=== PATIENT | female | born 1995 | race African-American/Black ===

== ENCOUNTER 2016-08-08 22:37 | Emergency (ER) | payer SELFPAY ==
--- NOTE | 2016-08-08 22:38 | PDOC ---
History of Present Illness - General Chief Complaint: Pain Stated Complaint: LOWER ABD PAIN Time Seen by Provider: 08/08/16 22:38 History Source: Patient Exam Limitations: No Limitations - History of Present Illness Initial Comments: 21 yo F no significant PMH presents with abrupt onset lower abd pain x1 day. She states the pain is mild to moderate, has been progressively worsening. Associated with nausea but no vomiting or diarrhea. Denies fever, dysuria, urinary urgency, frequency. No prior similar symptoms. She has had UTIs in the past, but this is different than those symptoms. LMP July 07. Past History - Past Medical History Allergies/Adverse Reactions: Allergies Allergy/AdvReac Type Severity Reaction Status Date / Time chlorpromazine HCl Allergy Verified 05/06/16 19:32 [From Thorazine] diphenhydramine HCl Allergy Verified 05/06/16 19:32 [From Benadryl] Home Medications: Ambulatory Orders Albuterol Sulfate Inhaler - [Ventolin Hfa Inhaler -] 1 - 2 inh PO Q4H 05/06/16 Ibuprofen [Motrin -] 600 mg PO TID PRN #21 tablet 08/09/16 Oxycodone HCl/Acetaminophen [Percocet 5-325 mg Tablet] 1 tab PO Q6H PRN #12 tablet MDD 4 tabs 08/09/16 Anemia: Yes Asthma: Yes - Surgical History Other Surgical History: IUD - Psycho/Social/Smoking Cessation Hx Suicidal Ideation: No Smoking History: Current every day smoker Have you smoked in the past 12 months: Yes Number of Cigarettes Smoked Daily: 5 'Breaking Loose' booklet given: 03/06/16 Hx Alcohol Use: Yes (WEEKLY) Drug/Substance Use Hx: No Substance Use Type: None Review of Systems - Review of Systems Able to Perform ROS?: Yes Comments:: GENERAL/CONSTITUTIONAL: No fever or chills. No weakness. HEAD, EYES, EARS, NOSE AND THROAT: No change in vision. No ear pain or discharge. No sore throat. CARDIOVASCULAR: No chest pain or shortness of breath. RESPIRATORY: No cough, wheezing, or hemoptysis. GASTROINTESTINAL: +Nausea. No vomiting, diarrhea or constipation. +Lower abd pain. GENITOURINARY: No dysuria, frequency, or change in urination. MUSCULOSKELETAL: No joint or muscle swelling or pain. No neck or back pain. SKIN: No rash NEUROLOGIC: No headache, vertigo, loss of consciousness, or change in strength/ sensation. ENDOCRINE: No increased thirst. No abnormal weight change. HEMATOLOGIC/LYMPHATIC: No anemia, easy bleeding, or history of blood clots. ALLERGIC/IMMUNOLOGIC: No hives or skin allergy. *Physical Exam - Physical Exam Comments: GENERAL: Awake, alert, and fully oriented, in no acute distress. Appears uncomfortable. HEAD: No signs of trauma EYES: PERRLA, EOMI, sclera anicteric, conjunctiva clear ENT: Auricles normal inspection, hearing grossly normal, nares patent, oropharynx clear without exudates. Moist mucosa NECK: Normal ROM, supple, no lymphadenopathy, JVD, or masses LUNGS: Breath sounds equal, clear to auscultation bilaterally. No wheezes, and no crackles HEART: Regular rate and rhythm, normal S1 and S2, no murmurs, rubs or gallops ABDOMEN: Soft, +suprapubic and BLQ tenderness, normoactive bowel sounds. No guarding, no rebound. No masses. No CVAT. +Tenderness to R lower back. EXTREMITIES: Normal range of motion, no edema. No clubbing or cyanosis. No cords, erythema, or tenderness NEUROLOGICAL: Cranial nerves II through XII grossly intact. Normal speech, normal gait SKIN: Warm, Dry, normal turgor, no rashes or lesions noted. : No external lesions. Trace physiologic discharge. No CMT, no adnexal tenderness. ED Treatment Course - LABORATORY CBC & Chemistry Diagram: 08/08/16 23:53 08/08/16 23:55 Medical Decision Making - Medical Decision Making 08/08/16 23:46 Pt initially did not want any strong pain medicines. She had taken ibuprofen 600 mg prior to arrival. She agreed to tylenol in ED. On reassessment, she is significantly more uncomfortable, unable to find a comfortable position on the stretcher. Currently awaiting CT to r/o kidney stone. At present, pain is now a 10/10, and she agrees to IV placement and pain medication. Will give her morphine and keep her NPO. 08/09/16 01:[address] results with patient. Shows free fluid in the pelvis, no other acute findings. Based on the clinical presentation, I suspect this may have been a ruptured ovarian cyst. Her pain has localized to R lower abdomen, and she states that she is more comfortable when she lies on her left side. There are no peritoneal signs. Pelvic exam is unremarkable. Will treat with pain medications. Pt counseled to return to ED if symptoms persist, worsen, or if she develops new symptoms. She will f/u with her nurse obgyn this week. *DC/Admit/Observation/Transfer Diagnosis at time of Disposition: Abdominal pain Qualifiers: Abdominal location: lower abdomen, unspecified Qualified Code(s): R10.30 - Lower abdominal pain, unspecified - Discharge Dispostion Condition at time of disposition: Stable Admit: No - Prescriptions Prescriptions: Ibuprofen [Motrin -] 600 mg PO TID PRN #21 tablet PRN Reason: Pain Oxycodone HCl/Acetaminophen [Percocet 5-325 mg Tablet] 1 tab PO Q6H PRN #12 tablet MDD 4 tabs PRN Reason: Severe Pain - Patient Instructions Printed Discharge Instructions: DI for Abdominal Pain-Adult
[2016-08-08 22:45] VITALS: BP 131/66; PULSE 80; TEMP 98.8; BMI 39.9
[2016-08-08] MEDS ORDERED: ACETAMINOPHEN 325 MG TABLET (FP) PO ONE (23:05)
[2016-08-08 23:07] LABS: URINE APPEARANCE Clear; URINE BILIRUBIN Negative (NEGATIVE); URINE BLOOD Negative (NEGATIVE); URINE COLOR YELLOW; URINE GLUCOSE (UA) Negative (NEGATIVE); URINE KETONE 1+ (NEGATIVE); URINE LEUK ESTERASE Trace (NEGATIVE); URINE NITRITE Negative (NEGATIVE); URINE PROTEIN Negative (NEGATIVE); URINE UROBILINOGEN 0.2 E.U/dl (0.2-1.0)
[2016-08-08] MEDS ORDERED: ACETAMINOPHEN 325 MG TABLET (FP) ONE (23:11)
[2016-08-08] MEDS ORDERED: SODIUM CHLORIDE 1,000 ML IV STA (23:44)
[2016-08-08] MEDS ORDERED: morphine CARPU-JECT 4 MG/1 ML DISP.SYRIN IVPUSH ONE (23:44)
[2016-08-08] MEDS ORDERED: morphine CARPU-JECT 10 MG/1 ML DISP.SYRIN ONE (23:58)
[2016-08-09 00:32] LABS: BASOPHIL 0.7 % (0-2.0); EOSINOPHIL 3.6 % (0-4.5); MCH 22.3 pg (25.7-33.7); MCHC 31.5 g/dl (32.0-36.0); MEAN CELL VOLUME 70.6 fl (80-96); MEAN PLT VOLUME 9.8 fl (7.5-11.1); NEUTROPHILS 57.5 % (42.8-82.8); PLATELET COUNT 161 K/MM3 (134-434); RDW 15.7 % (11.6-15.6); WHITE BLOOD COUNT 7.5 K/mm3 (4.0-10.0)
[2016-08-09 00:55] LABS: ALBUMIN 3.8 g/dl (3.4-5.0); ALK PHOS 77 U/L (45-117); ANION GAP 9 (8-16); BILIRUBIN,TOTAL 0.3 mg/dL (0.2-1.0); CO2 25 mmol/L (21-32); CREATININE 0.8 mg/dL (0.55-1.02); GLUCOSE,RANDOM 91 mg/dL (74-106); SGOT/AST 12 U/L (15-37); SGPT/ALT 19 U/L (12-78); TOT PROT 7.2 g/dl (6.4-8.2)
== END 2016-08-09 01:22 | disposition home or self-care (01) ==
LOC: FER 22:37
PROC: 3E0337Z Introduction of Electrolytic and Water Balance Substance into Peripheral Vein, Percutaneous Approach (ICD-10-PCS; principal; 2016-08-08)
PROC: 3E033NZ Introduction of Analgesics, Hypnotics, Sedatives into Peripheral Vein, Percutaneous Approach (ICD-10-PCS; 2016-08-08)
DX: R10.30 Lower abdominal pain, unspecified (principal)
CPT/HCPCS: 36415; 74176; 80053; 81003; 84703; 85025; 87491; 87591; 99283-25

== ENCOUNTER 2016-08-10 22:37 | Emergency (ER) | payer SELFPAY ==
[2016-08-10 22:51] VITALS: BP 138/87; PULSE 75; TEMP 98.9; BMI 39.9
--- NOTE | 2016-08-10 22:51 | PDOC ---
History of Present Illness - General Chief Complaint: Pain, Acute Stated Complaint: ABDOMINAL PAIN Time Seen by Provider: 08/10/16 22:44 History Source: Patient Exam Limitations: No Limitations - History of Present Illness Initial Comments: 08/11/16 00:39 This is a morbidly obese black female who comes in complaining of pelvic pain 2 days. Patient was seen at [facility] by Dr. Browning and had a complete workup including labs and CAT scan. Patient's lab work was all normal including there was no left shift or white count. Her chemistries were also normal. Patient had a pelvic exam by Dr. Browning and cultures for GC and Chlamydia were sent however there was no cervical motion tenderness and adnexal tenderness or cervical discharge. Culture results are still pending. CAT scan did show a normal appendix and no acute intra-abdominal pathology. The IUD was in the lower uterine segment with a small amount of fluid in the old affect otherwise normal CAT scan Patient now returns complaining of worsening pain. Patient did see her primary care doctor and was referred to an OB but cannot get an appointment for a month and a half from now. Patient did not have a pelvic ultrasound at the time of her prior evaluation. She denies any new symptoms there is no fevers or chills, there is no nausea vomiting or diarrhea. There is no new quality to her pain is is just persistent and worse. Patient was given ibuprofen and Percocet for the pain and says that it is not helping. PAST MEDICAL HISTORY: no significant history PAST SURGICAL HISTORY: no significant history FAMILY HISTORY: no pertinant history SOCIAL HISTORY: Pt lives with family and is employed. MEDICATIONS: reviewed ALLERGIES: As per nursing notes Review of Systems General: No fevers or chills, no weakness, no weight loss HEENT: No change in vision. No sore throat,. No ear pain CardioVascular: No chest pain or shortness of breath Respiratory:No cough, or wheezing. Gastrointestinal: no nausea, vomitting, diarrhea or constipation, No rectal bleeding, + abdominal pain Genitourinary: No dysuria, hematuria, or frequency Musculoskeletal: No joint or muscle pain or swelling Neurologic: No headache, vertigo, dizziness or loss of consciousness Psychiatric: nor depression Skin: No rashes or easy bruising Endocrine: no increased thirst or abnormal weight change Allergic: no skin or latex allergy All other systems reviewed and normal Exam: General: Well-nourished well-developed individual, no acute distress HEENT: Throat: Normal, tonsils normal, no erythema or exudate Neck: Supple, no meningeal signs, no lymphadenopathy Eyes::Pupils equal reactive and round, extraocular motion intact Chest: Nontender to palpation Cardiac: S1-S2 normal, regular rate and rhythm, no murmurs rubs or gallops Respiratory: Lungs clear to auscultation bilateral Abdomen: Soft, nondistended, normal bowel sounds, there is moderate tenderness on palpation across lower abdominal/pelvic area. There is no guarding or rebound. Extremities: Warm, dry, no cyanosis, clubbing, or edema Skin: No rashes Neuro: Alert and oriented x3, nonfocal exam, grossly intact, normal gait Psych: Normal mood and affect Assessment and plan: This is a 21-year-old female who comes in complaining of pelvic pain. Patient was seems to days ago and had a complete workup including CAT scan and lab work pelvic exam and [employer] cultures all of which were negative. I repeated patient's blood work which was normal And had a pelvic ultrasound done which was also normal. Patient was referred to a [facility] [facility] doctor for further evaluation and was told to take Aleve for the pain. Patient discharged home. Past History - Past Medical History Allergies/Adverse Reactions: Allergies Allergy/AdvReac Type Severity Reaction Status Date / Time chlorpromazine HCl Allergy Verified 05/06/16 19:32 [From Thorazine] diphenhydramine HCl Allergy Verified 05/06/16 19:32 [From Benadryl] Home Medications: Ambulatory Orders Albuterol Sulfate Inhaler - [Ventolin Hfa Inhaler -] 1 - 2 inh PO Q4H PRN Ibuprofen [Motrin -] 600 mg PO TID PRN #21 tablet 08/09/16 Oxycodone HCl/Acetaminophen [Percocet 5-325 mg Tablet] 1 tab PO Q6H PRN #12 tablet MDD 4 tabs 08/09/16 Anemia: Yes Asthma: Yes - Psycho/Social/Smoking Cessation Hx Anxiety: No Suicidal Ideation: No Smoking History: Current every day smoker Have you smoked in the past 12 months: Yes Number of Cigarettes Smoked Daily: 5 Information on smoking cessation initiated: Yes 'Breaking Loose' booklet given: 03/06/16 Hx Alcohol Use: Yes (WEEKLY) Drug/Substance Use Hx: No Substance Use Type: None *Physical Exam - Vital Signs Last Vital Signs Temp Pulse Resp BP Pulse Ox 98.9 F 75 16 138/87 08/10/16 22:40 08/10/16 22:40 08/10/16 22:40 08/10/16 22:40 ED Treatment Course - LABORATORY CBC & Chemistry Diagram: 08/10/16 23:49 08/10/16 23:49 *DC/Admit/Observation/Transfer Diagnosis at time of Disposition: Pelvic pain - Discharge Dispostion Disposition: HOME Condition at time of disposition: Stable Admit: No - Patient Instructions Additional Instructions: The workup you had here in the emergency room for your pelvic pain was normal. I did not get the official final report on your ultrasound however it was reported to me as normal by the dental technician and I also looked at it and do not see anything that I am concerned about. For the pain take Aleve 2 tablets twice a day with food don't take on an empty stomach. His important he follow-up with a [facility] doctor. I am referring you to the OB/ [facility] doctor that we have camera person. This doctor is out of [facility] and the phone number for the clinic is [phone]. When you call the phone number tell them that you were in [place] emergency room and we want you seen and followed up within the next 3-4 days or sooner if possible. Return to the emergency department immediately with ANY new, persistent or worsening symptoms. Continue any medications as previously prescribed by your physician. You should follow up with your primary doctor as soon as possible regarding today's emergency department visit. . Please make sure your doctor reviews the results of your emergency evaluation. Thank you for coming to the Emergency Department today for your care. It was a pleasure to see you today. Please note that your evaluation is INCOMPLETE until you follow-up with your doctor.
[2016-08-10] MEDS ORDERED: morphine CARPU-JECT 4 MG/1 ML DISP.SYRIN IVPUSH ONE (23:26)
[2016-08-10] MEDS ORDERED: SODIUM CHLORIDE 1,000 ML IV ONE (23:27)
[2016-08-10] MEDS ORDERED: morphine CARPU-JECT 10 MG/1 ML DISP.SYRIN ONE (23:39)
[2016-08-11] MEDS ORDERED: cloNIDine HCL 0.1 MG TABLET PO ONE (00:35)
[2016-08-11 00:51] LABS: BASOPHIL 0.8 % (0-2.0); EOSINOPHIL 4.2 % (0-4.5); MCH 22.4 pg (25.7-33.7); MCHC 31.5 g/dl (32.0-36.0); MEAN CELL VOLUME 71.2 fl (80-96); MEAN PLT VOLUME 10.3 fl (7.5-11.1); NEUTROPHILS 58.4 % (42.8-82.8); PLATELET COUNT 182 K/MM3 (134-434); RDW 15.8 % (11.6-15.6); WHITE BLOOD COUNT 8.3 K/mm3 (4.0-10.0)
[2016-08-11 01:25] LABS: ANION GAP 9 (8-16); BILIRUBIN,TOTAL 0.2 mg/dL (0.2-1.0); CALCIUM 9.5 mg/dL (8.5-10.1); CO2 25 mmol/L (21-32); COCKROFT - GAULT 189.5585; CREATININE 0.8 mg/dL (0.55-1.02); GLUCOSE,RANDOM 81 mg/dL (74-106); SGOT/AST 19 U/L (15-37); SGPT/ALT 21 U/L (12-78); TOT PROT 7.5 g/dl (6.4-8.2)
[2016-08-11 01:26] LABS: ALK PHOS 79 U/L (45-117)
[2016-08-11] MEDS ORDERED: morphine CARPU-JECT 4 MG/1 ML DISP.SYRIN IVPUSH ONE (02:06)
== END 2016-08-11 02:44 | disposition home or self-care (01) ==
LOC: FER 22:37
PROC: 3E033NZ Introduction of Analgesics, Hypnotics, Sedatives into Peripheral Vein, Percutaneous Approach (ICD-10-PCS; principal; 2016-08-10)
PROC: 3E0337Z Introduction of Electrolytic and Water Balance Substance into Peripheral Vein, Percutaneous Approach (ICD-10-PCS; 2016-08-10)
DX: R10.2 Pelvic and perineal pain (principal); F17.210 Nicotine dependence, cigarettes, uncomplicated; E66.01 Morbid (severe) obesity due to excess calories; Z68.39 Body mass index [BMI] 39.0-39.9, adult
CPT/HCPCS: 36415; 76830-TC; 80053; 85025; 99283-25

== ENCOUNTER 2017-03-16 21:40 | Emergency (ER) | payer OTHER ==
--- NOTE | 2017-03-16 21:44 | PDOC ---
History of Present Illness - General Chief Complaint: Nausea/Vomiting Stated Complaint: N/V/PAIN Time Seen by Provider: 03/16/17 21:43 History Source: Patient Exam Limitations: No Limitations - History of Present Illness Initial Comments: 03/16/17 21:46 This is a 21-year-old female who comes in complaining of migraine headache nausea vomiting. Patient is 8 weeks by date. Patient is also complaining of some intermittent hematuria with right flank pain. Patient denies any vaginal cramping but says there is been some intermittent vaginal spotting. Patient saw her OB and was given some vitamins otherwise nothing for the headache or vomiting. Patient said she is continuing to vomit now 2 days. Patient denies any fevers or chills, frequency or urgency on urination. PAST MEDICAL HISTORY: no significant history PAST SURGICAL HISTORY: no significant history FAMILY HISTORY: no pertinant history SOCIAL HISTORY: Pt lives with family and is employed. MEDICATIONS: reviewed ALLERGIES: As per nursing notes Review of Systems General: No fevers or chills, no weakness, no weight loss HEENT: No change in vision. No sore throat,. No ear pain CardioVascular: No chest pain or shortness of breath Respiratory:No cough, or wheezing. Gastrointestinal: no nausea, vomitting, diarrhea or constipation, No rectal bleeding Genitourinary: No dysuria, hematuria, or frequency Musculoskeletal: No joint or muscle pain or swelling Neurologic: No headache, vertigo, dizziness or loss of consciousness Psychiatric: nor depression Skin: No rashes or easy bruising Endocrine: no increased thirst or abnormal weight change Allergic: no skin or latex allergy All other systems reviewed and normal Exam: General: Well-nourished well-developed individual, no acute distress HEENT: Throat: Normal, tonsils normal, no erythema or exudate Neck: Supple, no meningeal signs, no lymphadenopathy Eyes::Pupils equal reactive and round, extraocular motion intact Chest: Nontender to palpation Cardiac: S1-S2 normal, regular rate and rhythm, no murmurs rubs or gallops Respiratory: Lungs clear to auscultation bilateral Abdomen: Soft, nondistended, normal bowel sounds, nontender to palpation diffusely Back: There is some mild right CVA and flank tenderness on palpation. Extremities: Warm, dry, no cyanosis, clubbing, or edema Skin: No rashes Neuro: Alert and oriented x3, nonfocal exam, grossly intact, normal gait Psych: Normal mood and affect 03/17/17 00:26 Patient tolerated by mouth's, patient received 1 L of fluid no further vomiting. Patient feels better Assessment and plan: This is a 21-year-old female who comes in with a migraine headache and nausea and vomiting 2 days. Patient's labs were unremarkable with the exception of a trace amount of ketones in her urine. Patient was given a liter of fluid and able to tolerate by mouth's. Patient has an OB that she will follow-up with on Saturday Past History - Past Medical History Allergies/Adverse Reactions: Allergies Allergy/AdvReac Type Severity Reaction Status Date / Time chlorpromazine HCl Allergy Verified 05/06/16 19:32 [From Thorazine] diphenhydramine HCl Allergy Verified 05/06/16 19:32 [From Benadryl] Home Medications: Ambulatory Orders Albuterol Sulfate Inhaler - [Ventolin Hfa Inhaler -] 1 - 2 inh PO Q4H PRN Pnv No.121/Iron/Folic Acid [ Multivitamin Tablet] 1 each PO BIDLASIX 03/22 Anemia: Yes Asthma: Yes - Suicide/Smoking/Psychosocial Hx Smoking History: Current every day smoker Have you smoked in the past 12 months: Yes Number of Cigarettes Smoked Daily: 5 'Breaking Loose' booklet given: 03/06/16 Hx Alcohol Use: Yes (WEEKLY) Drug/Substance Use Hx: No Substance Use Type: None ED Treatment Course - LABORATORY CBC & Chemistry Diagram: 03/16/17 21:55 03/16/17 21:55 *DC/Admit/Observation/Transfer Diagnosis at time of Disposition: Nausea & vomiting, Migraine - Discharge Dispostion Disposition: HOME Condition at time of disposition: Stable - Referrals Referrals: Yung Sampson [Primary Care Provider] - - Patient Instructions Additional Instructions: you can take Tylenol as needed for pain. If the nausea returns gait get the prescription for Reglan filled and take one as often as every 6-8 hours. Return to the emergency department immediately with ANY new, persistent or worsening symptoms. Continue any medications as previously prescribed by your physician. You should follow up with your primary doctor as soon as possible regarding today's emergency department visit. . Please make sure your doctor reviews the results of your emergency evaluation. Thank you for coming to the Emergency Department today for your care. It was a pleasure to see you today. Please note that your evaluation is INCOMPLETE until you follow-up with your doctor. - Post Discharge Activity
[2017-03-16] MEDS ORDERED: ACETAMINOPHEN 1000 MG/100 ML VIAL (NON FORMULARY) IVPB ONE (21:45)
[2017-03-16] MEDS ORDERED: METOCLOPRAMIDE HCL INJECTION 10 MG/2 ML VIAL IVPUSH ONE (21:45)
[2017-03-16 21:46] VITALS: BP 142/72; PULSE 89; TEMP 99; BMI 42.9
[2017-03-16] MEDS ORDERED: ACETAMINOPHEN INJECTION 100 ML IVPB ONE (21:51)
[2017-03-16 22:35] LABS: PH,URINE 6.5 (4.5-8); URINE APPEARANCE Clear; URINE BILIRUBIN Negative (NEGATIVE); URINE BLOOD Negative (NEGATIVE); URINE COLOR YELLOW; URINE GLUCOSE (UA) Negative (NEGATIVE); URINE KETONE Trace (NEGATIVE); URINE LEUK ESTERASE Negative (NEGATIVE); URINE NITRITE Negative (NEGATIVE); URINE PROTEIN Trace (NEGATIVE); URINE UROBILINOGEN 0.2 (0.2-1.0)
[2017-03-16 22:36] LABS: BASOPHIL 1.1 % (0-2.0); EOSINOPHIL 1.9 % (0-4.5); MCH 23.3 pg (25.7-33.7); MEAN CELL VOLUME 72.7 fl (80-96); MEAN PLT VOLUME 10.3 fl (7.5-11.1); NEUTROPHILS 70.1 % (42.8-82.8); PLATELET COUNT 218 K/MM3 (134-434); RDW 13.7 % (11.6-15.6); WHITE BLOOD COUNT 9.4 K/mm3 (4.0-10.8)
[2017-03-17 00:03] LABS: ALBUMIN 3.5 g/dl (3.4-5.0); ALK PHOS 65 U/L (45-117); ANION GAP 9 (8-16); BILIRUBIN,TOTAL 0.1 mg/dL (0.2-1.0); CALCIUM 8.9 mg/dL (8.5-10.1); CO2 25 mmol/L (21-32); CREATININE 0.5 mg/dL (0.55-1.02); GLUCOSE,RANDOM 80 mg/dL (74-106); SGOT/AST 14 U/L (15-37); SGPT/ALT 26 U/L (12-78); TOT PROT 7.2 g/dl (6.4-8.2)
[2017-03-17 00:43] LABS: HYPOCHROMIA 2+
[2017-03-17 00:44] LABS: ACANTHOCYTES 1+; BURR CELLS 1+; OVALOCYTE 1+; TARGET CELLS 1+; TEAR DROP CELLS 1+
== END 2017-03-17 00:32 | disposition home or self-care (01) ==
LOC: FER 21:40
PROC: 3E03329 Introduction of Other Anti-infective into Peripheral Vein, Percutaneous Approach (ICD-10-PCS; principal; 2017-03-16)
PROC: 3E033GC Introduction of Other Therapeutic Substance into Peripheral Vein, Percutaneous Approach (ICD-10-PCS; 2017-03-16)
DX: O26.891 Other specified pregnancy related conditions, first trimester (principal); Z3A.08 8 weeks gestation of pregnancy; R11.2 Nausea with vomiting, unspecified; R51 Headache
CPT/HCPCS: 36415; 80053; 81003; 85025; 99283-25

== ENCOUNTER 2017-03-31 20:12 | Emergency (ER) | payer OTHER ==
[2017-03-31 20:21] VITALS: BP 120/81; PULSE 81; TEMP 97.3; BMI 42.2
--- NOTE | 2017-03-31 20:29 | PDOC ---
History of Present Illness - General History Source: Patient Exam Limitations: No Limitations - History of Present Illness Initial Comments: The patient is a 21 year old female, G-3, P-2, A-0 with a significant past medical history of asthma and anemia, who presents to the emergency department with, reddish/brown vaginal discharge and left lower quadrant pain for 6 days. She claims to be 10 weeks along and this to be unlike any of her priors. She claims the blood to occasionally stain her undergarments and to be worse in the morning. She reports the pain to also be worse in the morning. She reports the symptoms to worsen over the past 6 days. She reports nausea secondary to her symptoms and taking metoclopramide, as prescribed by her construction economist, with relief. She denies recent fevers, chills, headache or dizziness. She denies recent vomit , diarrhea or constipation. She denies recent dysuria, frequency, urgency or hematuria. She denies recent chest pain or shortness of breath. Allergies: Benadryl, Chlorpromazine HCl Past surgical history: None reported. Social history: Nonsmoker. Denies EtOH use and recreational drug use. Primary Care Physician: Dr. Viktoriya Leo 03/31/17 21:25 <Aleja Luz - Last Filed: 03/31/17 21:24> <Keila Saldivar - Last Filed: 04/01/17 03:48> - General Chief Complaint: Vaginal Sxs Stated Complaint: /[place] DISCHARGE Time Seen by Provider: 03/31/17 20:18 Past History <Aleja Luz - Last Filed: 03/31/17 21:24> - Past Medical History Anemia: Yes Asthma: Yes COPD: No Thyroid Disease: Yes - Suicide/Smoking/Psychosocial Hx Smoking History: Former smoker Have you smoked in the past 12 months: Yes Number of Cigarettes Smoked Daily: 5 If you are a former smoker, when did you quit?: FEBRUARY 2017 Information on smoking cessation initiated: Yes 'Breaking Loose' booklet given: 03/06/16 Hx Alcohol Use: No Drug/Substance Use Hx: No Substance Use Type: None <Keila Saldivar - Last Filed: 04/01/17 03:48> - Past Medical History Allergies/Adverse Reactions: Allergies Allergy/AdvReac Type Severity Reaction Status Date / Time chlorpromazine HCl Allergy Verified 03/31/17 20:14 [From Thorazine] diphenhydramine HCl Allergy Verified 03/31/17 20:14 [From Benadryl] Home Medications: Ambulatory Orders Albuterol Sulfate Inhaler - [Ventolin Hfa Inhaler -] 1 - 2 inh PO Q4H PRN Pnv No.121/Iron/Folic Acid [ Multivitamin Tablet] 1 each PO BIDLASIX 03/22 Metoclopramide HCl [Reglan] 10 mg PO TID PRN #15 tablet 03/17/17 Review of Systems - Review of Systems Able to Perform ROS?: Yes Comments:: 03/31/17 21:22 GENERAL/CONSTITUTIONAL: No fever or chills. No weakness. HEAD, EYES, EARS, NOSE AND THROAT: No change in vision. No ear pain or discharge. No sore throat. CARDIOVASCULAR: No chest pain or shortness of breath. RESPIRATORY: No cough, wheezing, or hemoptysis. GASTROINTESTINAL: +Nausea. No vomiting, diarrhea or constipation. GENITOURINARY:+ Reddish/brown vaginal discharge. No dysuria, frequency, or change in urination. MUSCULOSKELETAL: +Lower quadrant pain. No joint swelling or pain. No neck or back pain. SKIN: No rash NEUROLOGIC: No headache, vertigo, loss of consciousness, or change in strength/ sensation. ENDOCRINE: No increased thirst. No abnormal weight change. HEMATOLOGIC/LYMPHATIC: No easy bleeding, or history of blood clots. ALLERGIC/IMMUNOLOGIC: No hives or skin allergy. Is the patient limited Monegasque proficient: Yes All Other Systems: Reviewed and Negative <Aleja Luz - Last Filed: 03/31/17 21:24> *Physical Exam - Vital Signs Last Vital Signs Temp Pulse Resp BP Pulse Ox 97.3 F L 81 16 120/81 98 03/31/17 20:16 03/31/17 20:16 03/31/17 20:16 03/31/17 20:16 03/31/17 20:16 - Physical Exam Comments: 03/31/17 21:22 GENERAL: The patient is awake, alert, and fully oriented, in no acute distress. HEAD: Normal with no signs of trauma. EYES: Pupils equal, round and reactive to light, extraocular movements intact, sclera anicteric, conjunctiva clear with no pallor. ENT: Ears normal, nares patent, oropharynx clear without exudates. Moist mucous membranes. NECK: Normal range of motion, supple without lymphadenopathy, JVD, or masses. LUNGS: Breath sounds equal, clear to auscultation bilaterally. No wheeze/ crackles. HEART: Regular rate and rhythm, normal S1 and S2 without murmur or rub. ABDOMEN: +Mild suprapubic and left lower quad tenderness without guarding or rebound. +Mildly distended and soft. BS wnl. No palpable masses. No hepatosplenomegaly. EXTREMITIES: Normal range of motion, no edema. No clubbing or cyanosis. No cords, erythema, or tenderness. NEUROLOGICAL: Cranial nerves II through XII grossly intact. Normal speech, normal gait. PSYCH: Normal mood, normal affect. SKIN: Warm, Dry, normal turgor, no rashes or lesions noted. 03/31/17 21:25 <Aleja Luz - Last Filed: 03/31/17 21:24> - Vital Signs Last Vital Signs Temp Pulse Resp BP Pulse Ox 97.3 F L 81 16 120/81 98 03/31/17 20:16 03/31/17 20:16 03/31/17 20:16 03/31/17 20:16 03/31/17 20:16 <Keila Saldivar - Last Filed: 04/01/17 03:48> Progress Note - Progress Note Progress Note: Documentation has been prepared under my direction and personally reviewed by me in its entirety. I attest that this documented accurately reflects all work, treatment, procedures and medical decision making performed by me. <Keila Saldivar - Last Filed: 04/01/17 03:48> Medical Decision Making - Medical Decision Making As noted above, this 21-year-old woman, 10 weeks , with previous history of care and previous ultrasound, presents with 6 day history of brownish discharge and some discomfort of the suprapubic and back regions. Exam as noted above. Patient had pelvic ultrasound to evaluate Single intrauterine with viable fetus (heart rate 153/minute) seen on ultrasound as interpreted by Imaging manager long term care. Only abnormality seen was small subchorionic hemorrhage. Results discussed with the patient; she should follow-up with her construction economist within the next 48 hours. Meanwhile, she should avoid strenuous activity, sexual intercourse, douching. She should return to the ER if she has worsening pain or increased bleeding <Keila Saldivar - Last Filed: 04/01/17 03:48> *DC/Admit/Observation/Transfer - Attestations Scribe Attestion: 03/31/17 21:22 Documentation prepared by Aleja Luz, acting as medical information specialist for Keila Saldivar MD. <Aleja Luz - Last Filed: 03/31/17 21:24> <Keila Saldivar - Last Filed: 04/01/17 03:48> Diagnosis at time of Disposition: Subchorionic hemorrhage in first trimester Qualifiers: Fetus number: single or unspecified fetus Qualified Code(s): O41.8X10 - Other specified disorders of amniotic fluid and membranes, first trimester, not applicable or unspecified - Discharge Dispostion Disposition: HOME Condition at time of disposition: Stable - Referrals Referrals: Viktoriya Leo [Primary Care Provider] - - Patient Instructions Printed Discharge Instructions: DI for Threatened Additional Instructions: Call your construction economist tomorrow to make an appointment to be seen within 1-2 days Avoid strenuous activity Return to ER if you have increasing pain/increased bleeding
== END 2017-03-31 23:00 | disposition home or self-care (01) ==
LOC: FER 20:12
DX: O26.891 Other specified pregnancy related conditions, first trimester (principal); O41.8X10 Other specified disorders of amniotic fluid and membranes, first trimester, not applicable or unspecified
CPT/HCPCS: 76801-TC; 99281-25

== ENCOUNTER 2017-04-02 17:51 | Emergency (ER) | payer OTHER ==
--- NOTE | 2017-04-02 18:03 | PDOC ---
History of Present Illness - General History Source: Patient Exam Limitations: No Limitations - History of Present Illness Initial Comments: 04/02/17 18:17 The patient is a 21-year-old female, , who is approximately 11-weeks , who presents to the ED with with vaginal bleeding and cramping. Pt was seen 2 days ago for spotting and received an US that revealed a live fetus but some subchorionic hemorrhage. Since then she reports that her cramping and spotting has progressively worsened. She denies passing any clots but reports mild headache. She denies any lightheadedness or dizziness. She denies any history of ectopic pregnancies. 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 Monsivais <Kaia Treviño - Last Filed: 04/02/17 18:17> <Roxie Johnson - Last Filed: 04/02/17 19:00> - General Chief Complaint: Vaginal Bleeding Stated Complaint: 11 weeks ,vag bleeding Time Seen by Provider: 04/02/17 17:54 Past History <Kaia Treviño - Last Filed: 04/02/17 18:17> - Past Medical History Anemia: Yes Asthma: Yes COPD: No Thyroid Disease: Yes - Suicide/Smoking/Psychosocial Hx Smoking History: Former smoker Have you smoked in the past 12 months: Yes Number of Cigarettes Smoked Daily: 5 If you are a former smoker, when did you quit?: FEBRUARY 2017 'Breaking Loose' booklet given: 03/06/16 Hx Alcohol Use: No Drug/Substance Use Hx: No Substance Use Type: None <Roxie Johnson - Last Filed: 04/02/17 19:00> - Past Medical History Allergies/Adverse Reactions: Allergies Allergy/AdvReac Type Severity Reaction Status Date / Time chlorpromazine HCl Allergy Verified 04/02/17 18:40 [From Thorazine] diphenhydramine HCl Allergy Verified 04/02/17 18:40 [From Benadryl] Home Medications: Ambulatory Orders Albuterol Sulfate Inhaler - [Ventolin Hfa Inhaler -] 1 - 2 inh PO Q4H PRN Pnv No.121/Iron/Folic Acid [ Multivitamin Tablet] 1 each PO BIDLASIX 03/22 Metoclopramide HCl [Reglan] 10 mg PO TID PRN #15 tablet 03/17/17 Review of Systems - Review of Systems Able to Perform ROS?: Yes Comments:: 04/02/17 18:25 GENERAL/CONSTITUTIONAL: No fever or chills. No weakness. HEAD, EYES, EARS, NOSE AND THROAT: No change in vision. No ear pain or discharge. No sore throat. CARDIOVASCULAR: No chest pain or shortness of breath. RESPIRATORY: No cough, wheezing, or hemoptysis. GASTROINTESTINAL: No nausea, vomiting, diarrhea or constipation. GENITOURINARY: (+)Vaginal bleeding, vaginal cramping. No dysuria, frequency, or change in urination. MUSCULOSKELETAL: No joint or muscle swelling or pain. No neck or back pain. SKIN: No rash NEUROLOGIC: No headache, vertigo, loss of consciousness, or change in strength/ sensation. ENDOCRINE: No increased thirst. No abnormal weight change. HEMATOLOGIC/LYMPHATIC: No anemia, easy bleeding, or history of blood clots. ALLERGIC/IMMUNOLOGIC: No hives or skin allergy. <Kaia Treviño - Last Filed: 04/02/17 18:17> *Physical Exam - Physical Exam Comments: 04/02/17 18:26 GENERAL: Awake, alert, and fully oriented, in no acute distress HEAD: No signs of trauma EYES: PERRLA, EOMI, sclera anicteric, conjunctiva clear ENT: Auricles normal inspection, nares patent, oropharynx clear without exudates. Moist mucosa. NECK: Normal ROM, supple, no lymphadenopathy, JVD, or masses LUNGS: Breath sounds equal, clear to auscultation bilaterally. No wheezes, and no crackles HEART: Regular rate and rhythm, normal S1 and S2, no murmurs, rubs or gallops ABDOMEN: (+)Mild left lower quadrant and suprapubic tenderness to palpation. Soft, normoactive bowel sounds. No guarding, no rebound. No masses EXTREMITIES: Normal range of motion, no edema. No clubbing or cyanosis. No cords, erythema, or tenderness NEUROLOGICAL: SKIN: Warm, Dry, normal turgor, no rashes or lesions noted <Kaia Treviño - Last Filed: 04/02/17 18:17> ED Treatment Course - LABORATORY CBC & Chemistry Diagram: 04/02/17 18:40 04/02/17 18:40 - RADIOLOGY Radiology Studies Ordered: Category Date Time Status TRANSVAGINAL US PREG [US] Stat Ultrasound 04/02/17 17:54 Ordered <Roxie Johnson - Last Filed: 04/02/17 19:00> Medical Decision Making - Medical Decision Making 04/02/17 18:01 21-year-old currently about 11 weeks here with vaginal cramping and bleeding. Patient states she was seen 2 days ago for spotting at that time was told that she had a live fetus but some subchorionic hemorrhage. Since that time cramping and spotting has become worse denies passing any clots complaining of a mild headache. Not lightheaded or dizzy no history of ectopic. Follows with an language asst at [facility] by the name of . On exam patient is awake alert no acute distress cardiac and lung exam is unremarkable. Her abdomen is noted for mild left lower quadrant and suprapubic tenderness does have vaginal bleeding which is active. Extremities warm well perfused Differential threatened versus incomplete AB versus complete AB will add a blood type as one was not done in the past for Rh status, an ultrasound to evaluate well-being we'll try to obtain a call back from patient's primary language asst and Tylenol for pain control 04/02/17 18:58 pt believes she is universal donor. awaiting RH status. and cbc. has followup with cardiovascular physician assistant in two days. live iup on us, with some fluid in sac possible subchorionic vs. another gest. sac. awaiting official radiology read. <Roxie Johnson - Last Filed: 04/02/17 19:00> *DC/Admit/Observation/Transfer - Attestations Scribe Attestion: 04/02/17 18:29 Documentation prepared by Kaia Treviño, acting as medical administrative technician for Roxie Johnson MD. <Kaia Treviño - Last Filed: 04/02/17 18:17> <Roxie Johnson - Last Filed: 04/02/17 19:00> Diagnosis at time of Disposition: Threatened - Discharge Dispostion Disposition: HOME Condition at time of disposition: Improved - Referrals Referrals: Lazaro Stallings MD [Staff Physician] - - Patient Instructions Printed Discharge Instructions: Threatened Additional Instructions: follow up wtih your athletic agent. dr. Bronwyn Chapin this 04/05 as scheduled. Take Tylenol for cramping pain as needed. Drink plenty of fluids return for any problems or concerns nothing per vagina until bleeding stops. - Post Discharge Activity Forms/Work/School Notes: Back to Work
[2017-04-02 18:51] VITALS: TEMP 98.5; BMI 42.2
[2017-04-02 18:57] LABS: BASOPHIL 0.4 % (0-2.0); EOSINOPHIL 3.1 % (0-4.5); MCH 22.6 pg (25.7-33.7); MCHC 31.2 g/dl (32.0-36.0); MEAN CELL VOLUME 72.5 fl (80-96); MEAN PLT VOLUME 9.5 fl (7.5-11.1); NEUTROPHILS 73.4 % (42.8-82.8); PLATELET COUNT 220 K/MM3 (134-434); RDW 13.5 % (11.6-15.6); WHITE BLOOD COUNT 9.5 K/mm3 (4.0-10.8)
[2017-04-02 19:12] LABS: ALBUMIN 3.6 g/dl (3.5-5.0); ALK PHOS 66 U/L (32-92); ANION GAP 6 (8-16); BILIRUBIN,TOTAL 0.3 mg/dl (0.2-1.0); CALCIUM 9.5 mg/dl (8.4-10.2); CO2 23 mmol/L (22-28); CREATININE 0.5 mg/dl (0.6-1.3); GLUCOSE,RANDOM 85 mg/dl (74-106); SGOT/AST 19 U/L (10-42); SGPT/ALT 19 U/L (10-40); TOT PROT 6.9 g/dl (6.4-8.3)
[2017-04-02 19:14] LABS: CPK 53 IU/L (26-192)
[2017-04-02 21:17] LABS: ANISOCYTOSIS 1+; HYPOCHROMIA 2+; MICROCYTOSIS 1+
[2017-04-02 21:38] VITALS: BP 132/78; PULSE 76
== END 2017-04-02 21:38 | disposition home or self-care (01) ==
LOC: FER 17:51
DX: O26.891 Other specified pregnancy related conditions, first trimester (principal); Z3A.11 11 weeks gestation of pregnancy; O20.0 Threatened abortion
CPT/HCPCS: 36415; 76817-TC; 80053; 82550; 84484; 84702; 85025; 86850; 86900; 86901; 99283-25

== ENCOUNTER 2018-06-05 20:32 | Emergency (ER) | payer OTHER ==
--- NOTE | 2018-06-05 20:35 | PDOC ---
History of Present Illness - History of Present Illness Initial Comments: The patient is a 23 year old female, with a significant PMH of asthma and anemia , who presents to the emergency department today complaining of headache, body aches, fever, chills, and chest pain for two days. Patient notes she began experiencing symptoms last night while laying down. She states she has a constant pounding headache and diffuse body aches. Patient notes she has had a fever measured at 106 yesterday, with associated chills/sweats that is aggravated by taking Dayquil. Patient also complains of chest pain, which is aggravated by lying down or when taking a deep breath. She reports an associated non-productive cough, mildly sore throat, and feels slightly congested. She endorses a lack of appetite and nausea, but denies any episodes of vomit. Patient notes she is not up to date with her flu vaccination. Patient is concerned she may get her 7 month old sick (up to date with vaccinations excluding flu shot), which is what prompted her visit to the ED tonight. The patient denies shortness of breath and dizziness. Denies vomit, diarrhea and constipation. Denies dysuria, frequency, urgency and hematuria. Allergies: Diphenhydramine HCL and Chlorpromazine HCL, Past surgical history: None reported Social history: No reported PCP: Dr. Viktoriya Leo 06/05/18 21:17 <Cristal Hsieh - Last Filed: 06/05/18 21:17> <Deepa Ross - Last Filed: 06/05/18 22:36> - General Chief Complaint: Cold Symptoms Stated Complaint: VIRAL SYMPTOMS Time Seen by Provider: 06/05/18 20:34 Past History <Cristal Hsieh - Last Filed: 06/05/18 21:17> - Past Medical History Anemia: Yes Asthma: Yes COPD: No DVT: No Thyroid Disease: Yes - Reproductive History (#): 4 Para: 3 Spontaneous : 0 - Suicide/Smoking/Psychosocial Hx Smoking History: Former smoker Have you smoked in the past 12 months: Yes Number of Cigarettes Smoked Daily: 5 If you are a former smoker, when did you quit?: FEBRUARY 2017 'Breaking Loose' booklet given: 03/06/16 Hx Alcohol Use: No Drug/Substance Use Hx: No Substance Use Type: None <Deepa Ross - Last Filed: 06/05/18 22:36> - Past Medical History Allergies/Adverse Reactions: Allergies Allergy/AdvReac Type Severity Reaction Status Date / Time chlorpromazine HCl Allergy Verified 04/02/17 18:40 [From Thorazine] diphenhydramine HCl Allergy Verified 04/02/17 18:40 [From Benadryl] Home Medications: Ambulatory Orders Ondansetron [Zofran Odt -] 4 mg SL TID PRN #21 od.tablet 06/05/18 Review of Systems - Review of Systems Comments:: GENERAL/CONSTITUTIONAL: +Fever (106). +Chills/sweats. +Body aches. +Lack of appetite. No weakness. HEAD, EYES, EARS, NOSE AND THROAT: +Mildly sore throat. +Slightly congested. No change in vision. No ear pain or discharge. CARDIOVASCULAR: +Chest pain. No shortness of breath. RESPIRATORY: +Non-productive cough. No wheezing, or hemoptysis. GASTROINTESTINAL: +Nausea. No vomiting, diarrhea or constipation. GENITOURINARY: No dysuria, frequency, or change in urination. MUSCULOSKELETAL: No joint or muscle swelling or pain. No neck or back pain. SKIN: No rash NEUROLOGIC: +Headache. No vertigo, loss of consciousness, or change in strength/ sensation. ENDOCRINE: No increased thirst. No abnormal weight change. HEMATOLOGIC/LYMPHATIC: No anemia, easy bleeding, or history of blood clots. ALLERGIC/IMMUNOLOGIC: No hives or skin allergy. 06/05/18 21:17 <Cristal Hsieh - Last Filed: 06/05/18 21:17> *Physical Exam - Vital Signs Last Vital Signs Temp Pulse Resp BP Pulse Ox 98.8 F 88 16 124/79 100 06/05/18 20:37 06/05/18 20:37 06/05/18 20:37 06/05/18 20:37 06/05/18 20:37 <Cristal Hsieh - Last Filed: 06/05/18 21:17> - Physical Exam Comments: GENERAL: Awake, alert, and fully oriented, in no acute distress HEAD: No signs of trauma EYES: PERRLA, EOMI, sclera anicteric, conjunctiva clear ENT: Auricles normal inspection, hearing grossly normal, nares patent, oropharynx clear without exudates. Moist mucosa NECK: Normal ROM, supple, no lymphadenopathy, JVD, or masses LUNGS: Breath sounds equal, clear to auscultation bilaterally. No wheezes, and no crackles. +Anterior superior chest wall tenderness. HEART: Regular rate and rhythm, normal S1 and S2, no murmurs, rubs or gallops ABDOMEN: Soft, nontender, normoactive bowel sounds. No guarding, no rebound. No masses EXTREMITIES: Normal range of motion, no edema. No clubbing or cyanosis. No cords, erythema, or tenderness NEUROLOGICAL: Cranial nerves II through XII grossly intact. Normal speech, normal gait. Motor and sensation intact SKIN: Warm, Dry, normal turgor, no rashes or lesions noted. <Deepa Ross - Last Filed: 06/05/18 22:36> Moderate Sedation - Procedure Monitoring Vital Signs: Procedure Monitoring Vital Signs Temperature 98.8 F 06/05/18 20:37 Pulse Rate 88 06/05/18 20:37 Respiratory Rate 16 06/05/18 20:37 Blood Pressure 124/79 06/05/18 20:37 O2 Sat by Pulse Oximetry (%) 100 06/05/18 20:37 <Cristal Hsieh - Last Filed: 06/05/18 21:17> Heart Score/ECG Review - ECG Impressions Comment:: EKG read 21:50- Sinus katia 59 bpm, no acute ST/T changes <Deepa Ross - Last Filed: 06/05/18 22:36> ED Treatment Course - ADDITIONAL ORDERS Additional order review: Laboratory Results 06/05/18 21:00 Urine HCG, Qual Negative - Medications Given in the ED: ED Medications Discontinued Medications Generic Name Dose Route Start Last Admin Trade Name Freq PRN Reason Stop Dose Admin Ibuprofen 600 mg 06/05/18 20:59 06/05/18 21:03 Motrin - PO 06/05/18 21:00 600 mg ONCE ONE Administration <Cristal Hsieh - Last Filed: 06/05/18 21:17> Medical Decision Making - Medical Decision Making 06/05/18 21:02 Symptoms c/w viral syndrome. Will treat symptomatically. Flu swab sent, as patient has a 7 month old at home, and if she is positive, may want to consider treating the child prophylactically. 06/05/18 22:36 Flu swab negative. I called patient to inform her. <Deepa Ross - Last Filed: 06/05/18 22:36> *DC/Admit/Observation/Transfer - Attestations Scribe Attestion: Documentation prepared by MADI Morton, acting as director biomedical engineering for Deepa Ross MD. 06/05/18 21:18 <Cristal Hsieh - Last Filed: 06/05/18 21:17> - Discharge Dispostion Decision to Admit order: No <Deepa Ross - Last Filed: 06/05/18 22:36> Diagnosis at time of Disposition: Viral syndrome - Discharge Dispostion Disposition: HOME Condition at time of disposition: Stable - Prescriptions Prescriptions: Ondansetron [Zofran Odt -] 4 mg SL TID PRN #21 od.tablet PRN Reason: Nausea - Patient Instructions Printed Discharge Instructions: DI for Viral Syndrome
[2018-06-05] MEDS ORDERED: IBUPROFEN 600 MG TABLET (FP) PO ONE ×2 (20:59→21:00)
[2018-06-05 21:10] VITALS: BP 124/79; PULSE 88; TEMP 98.8; BMI 50.7
--- NOTE | 2018-06-06 11:58 | EKG ---
Test Reason : Blood Pressure : / mmHG Vent. Rate : 059 BPM Atrial Rate : 059 BPM P-R Int : 166 ms QRS Dur : 094 ms QT Int : 426 ms P-R-T Axes : 040 079 049 degrees QTc Int : 421 ms SINUS BRADYCARDIA WITH SINUS ARRHYTHMIA T WAVE ABNORMALITY, CONSIDER ANTERIOR ISCHEMIA ABNORMAL ECG NO PREVIOUS ECGS AVAILABLE Confirmed by MATTHEW LARA MD ([id number]) on 06/06/2018 11:58:39 AM Referred By: DR ELDER Confirmed By:MATTHEW LARA MD
== END 2018-06-05 22:16 | disposition home or self-care (01) ==
LOC: FER 20:32
DX: B34.9 Viral infection, unspecified (principal); Z87.891 Personal history of nicotine dependence; J45.909 Unspecified asthma, uncomplicated; E07.9 Disorder of thyroid, unspecified
CPT/HCPCS: 71046-TC-FY; 84703; 87804; 93005; 99282-25

== ENCOUNTER 2018-08-30 20:45 | Emergency (ER) | payer OTHER ==
[2018-08-30 20:51] VITALS: BP 159/92; PULSE 74; TEMP 98; BMI 52.9
--- NOTE | 2018-08-30 21:02 | PDOC ---
Documentation entered by Walter Muniz SCRIBE, acting as scribe for Jay Jay White MD. Jay Jay White MD: This documentation has been prepared by the Cristy st Xhesika, SCRIBE, under my direction and personally reviewed by me in its entirety. I confirm that the documentation accurately reflects all work, treatment, procedures, and medical decision making performed by me. History of Present Illness - General Chief Complaint: Pain Stated Complaint: LEFT ANKLE PAIN Time Seen by Provider: 08/30/18 20:57 History Source: Patient Exam Limitations: No Limitations - History of Present Illness Initial Comments: 08/30/18 21:01 Assessment and plan: This is 23-year-old female who comes in complaining of left foot and ankle pain. Patient said she stands a long-time on hard surfaces and it is been bothering her progressively for several weeks. Patient denied any trauma. Patient had tenderness on palpation of both the ankle and foot Patient deferred a test and said there is no way she could be . Ankle and foot x-ray ordered X-ray was reviewed by me no acute pathology Patient discharged home and given orthopedic follow-up 08/30/18 21:10 The patient is a 23 year old female, with a significant PMH of asthma and anemia , who presents to the emergency department today with 2 weeks of L ankle pain. The patient states she has been endorsing ankle and foot pain for the past 2 weeks, however, the pain has progressively gotten worse the last 2 days prompting her arrival to the ED. 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 The patient notes she took 2 tablets of Motrin yesterday at work, with no relief, however, denies taking any today. The patient states her pain is aggravated with walking or any type of ankle/ foot movements. The patient denies and injuries or trauma to her ankle. The patient denies chest pain, shortness of breath, headache or dizziness. The patient denies fever, chills, nausea, vomit, diarrhea or constipation. The patient denies dysuria, frequency, urgency or hematuria. PAST MEDICAL HISTORY: asthma and anemia PAST SURGICAL HISTORY: no significant history FAMILY HISTORY: no pertinent history SOCIAL HISTORY: Pt lives with family and is employed. MEDICATIONS: reviewed ALLERGIES: Diphenhydramine HCL and Chlorpromazine HCL PCP: Dr. Viktoriya Leo Past History - Past Medical History Allergies/Adverse Reactions: Allergies Allergy/AdvReac Type Severity Reaction Status Date / Time chlorpromazine HCl Allergy Verified 08/30/18 20:46 [From Thorazine] diphenhydramine HCl Allergy Verified 08/30/18 20:46 [From Benadryl] Home Medications: Ambulatory Orders Albuterol Sulfate Inhaler - [Ventolin Hfa Inhaler -] 1 - 2 inh PO QID PRN Anemia: Yes Asthma: Yes COPD: No DVT: No Thyroid Disease: Yes - Reproductive History (#): 4 Para: 3 Spontaneous : 0 - Suicide/Smoking/Psychosocial Hx Smoking History: Current every day smoker Have you smoked in the past 12 months: No Number of Cigarettes Smoked Daily: 5 If you are a former smoker, when did you quit?: FEBRUARY 2017 Information on smoking cessation initiated: No 'Breaking Loose' booklet given: 03/06/16 Hx Alcohol Use: (occasional) Drug/Substance Use Hx: No Substance Use Type: None Review of Systems - Review of Systems Able to Perform ROS?: Yes Comments:: 08/30/18 21:11 General: No fevers or chills, no weakness, no weight loss HEENT: No change in vision. No sore throat,. No ear pain CardioVascular: No chest pain or shortness of breath Respiratory:No cough, or wheezing. Gastrointestinal: no nausea, vomiting, diarrhea or constipation, No rectal bleeding Genitourinary: No dysuria, hematuria, or frequency Musculoskeletal: (+) L ankle pain. No joint or muscle pain or swelling Neurologic: No headache, vertigo, dizziness or loss of consciousness Psychiatric: nor depression Skin: No rashes or easy bruising Endocrine: no increased thirst or abnormal weight change Allergic: no skin or latex allergy All other systems reviewed and normal *Physical Exam - Vital Signs Last Vital Signs Temp Pulse Resp BP Pulse Ox 98 F 74 18 159/92 100 08/30/18 20:45 08/30/18 20:45 08/30/18 20:45 08/30/18 20:45 08/30/18 20:45 - Physical Exam Comments: 08/30/18 21:12 GENERAL: The patient is awake, alert, and fully oriented, in no acute distress. HEAD: Normal with no signs of trauma. EYES: Pupils equal, round and reactive to light, extraocular movements intact, sclera anicteric, conjunctiva clear. EXTREMITIES: (+) Tenderness on palpation of 5th metatarsal, dorsal of the foot , and ankle. (+) decrease range of motion secondary to pain. (+) neurovascular intact. No edema. NEUROLOGICAL: Normal speech, normal gait. PSYCH: Normal mood, normal affect. SKIN: Warm, Dry, normal turgor, no rashes or lesions noted. ED Treatment Course - RADIOLOGY Radiology Studies Ordered: Category Date Time Status ANKLE & FOOT-LEFT* [RAD] Stat Radiology 08/30/18 20:59 Ordered *DC/Admit/Observation/Transfer Diagnosis at time of Disposition: Pain in left ankle and joints of left foot - Discharge Dispostion Disposition: HOME Condition at time of disposition: Stable - Referrals Referrals: Sharad Mcdermott MD [Staff Physician] - - Patient Instructions Additional Instructions: The pain take an anti-inflammatory ibuprofen 3 tablets 3 times a day with food or alternatively I'll leave 2 tablets twice a day with food. Follow-up with the orthopedist, Dr. Mcdermott Return to the emergency department immediately with ANY new, persistent or worsening symptoms. Continue any medications as previously prescribed by your physician. You should follow up with your primary doctor as soon as possible regarding today's emergency department visit. . Please make sure your doctor reviews the results of your emergency evaluation. Thank you for coming to the Emergency Department today for your care. It was a pleasure to see you today. Please note that your evaluation is INCOMPLETE until you follow-up with your doctor. - Post Discharge Activity Forms/Work/School Notes: Back to Work
[2018-08-30] MEDS ORDERED: IBUPROFEN 600 MG TABLET (FP) PO ONE ×2 (21:15→21:16)
== END 2018-08-30 21:52 | disposition home or self-care (01) ==
LOC: FER 20:45
DX: M25.572 Pain in left ankle and joints of left foot (principal); F17.210 Nicotine dependence, cigarettes, uncomplicated; J45.909 Unspecified asthma, uncomplicated
CPT/HCPCS: 36415; 73610-TC-LT-FY; 73630-TC-LT; 86618; 99282-25

== ENCOUNTER 2018-11-01 20:12 | Emergency (ER) | payer SELFPAY ==
[2018-11-01 20:29] VITALS: BP 139/88; PULSE 87; TEMP 99.2; BMI 53.2
--- NOTE | 2018-11-01 20:48 | PDOC ---
Documentation entered by Walter Muniz SCRIBE, acting as scribe for Jay Jay White MD. Jay Jay White MD: This documentation has been prepared by the Cristy st Xhesika, SCRIBE, under my direction and personally reviewed by me in its entirety. I confirm that the documentation accurately reflects all work, treatment, procedures, and medical decision making performed by me. History of Present Illness - General Chief Complaint: Blood Pressure Problem Stated Complaint: HIGH BLOOD PRESSURE Time Seen by Provider: 11/01/18 20:18 History Source: Patient Exam Limitations: No Limitations - History of Present Illness Initial Comments: 11/01/18 20:38 The patient is a 23 year old female, with a significant PMH of asthma and anemia , who presents to the emergency department complaining of high blood pressure. The patient states she works at the [employer] at [employer] when she felt hot and endorsed a headache. The patient states she saw EMS at her job, her blood pressure was 160/111 and she was given 2 Motrins with relief of symptoms. The patient states she also endorsed sharp achy feeling in her chest that lasted 20 seconds before self resolving. The patient states all her symptoms have resolved besides her headache. The patient denies chest pain, shortness of breath, or dizziness. The patient denies fever, chills, nausea, vomit, diarrhea or constipation. The patient denies dysuria, frequency, urgency or hematuria. PAST MEDICAL HISTORY: no significant history PAST SURGICAL HISTORY: no significant history FAMILY HISTORY: no pertinent history SOCIAL HISTORY: Pt lives with family and is employed. MEDICATIONS: reviewed ALLERGIES: As per nursing notes 11/01/18 20:45 Assessment and plan: This is a 23-year-old female who is obese and has history of intermittent hypertension but not on any antihypertensives. Patient said that her blood pressure quite often is elevated at work but not when she goes to the doctor. Patient came in complaining of a headache which has since nearly resolved and a blood pressure that was elevated when she was at work and taken by the EMS people there work. Patient otherwise has had some intermittent brief less than 30 seconds of a discomfort in her chest without any associated symptoms. Patient had a cardiogram here in the ED that shows Normal sinus rhythm and some T-wave abnormalities. Patient on review of a prior cardiogram back in May of this year it is unchanged. Also unchanged from several years ago. Patient discharged told to follow-up with her primary care doctor and discuss getting started on some antihypertensive medications such as a water pill. Past History - Past Medical History Allergies/Adverse Reactions: Allergies Allergy/AdvReac Type Severity Reaction Status Date / Time chlorpromazine HCl Allergy Verified 11/01/18 20:23 [From Thorazine] diphenhydramine HCl Allergy Verified 11/01/18 20:23 [From Benadryl] Home Medications: Ambulatory Orders Albuterol Sulfate Inhaler - [Ventolin Hfa Inhaler -] 1 - 2 inh PO QID PRN Anemia: Yes Asthma: Yes COPD: No DVT: No Thyroid Disease: Yes - Reproductive History (#): 4 Para: 3 Spontaneous : 0 - Suicide/Smoking/Psychosocial Hx Smoking History: Former smoker Have you smoked in the past 12 months: Yes Number of Cigarettes Smoked Daily: 5 If you are a former smoker, when did you quit?: FEBRUARY 2017 'Breaking Loose' booklet given: 03/06/16 Hx Alcohol Use: No Drug/Substance Use Hx: No Substance Use Type: None Review of Systems - Review of Systems Able to Perform ROS?: Yes Comments:: 11/01/18 20:39 General: No fevers or chills, no weakness, no weight loss HEENT: No change in vision. No sore throat,. No ear pain CardioVascular: No chest pain or shortness of breath Respiratory:No cough, or wheezing. Gastrointestinal: no nausea, vomiting, diarrhea or constipation, No rectal bleeding Genitourinary: No dysuria, hematuria, or frequency Musculoskeletal: No joint or muscle pain or swelling Neurologic: (+) headache. No vertigo, dizziness or loss of consciousness Psychiatric: nor depression Skin: No rashes or easy bruising Endocrine: no increased thirst or abnormal weight change Allergic: no skin or latex allergy All other systems reviewed and normal *Physical Exam - Vital Signs Last Vital Signs Temp Pulse Resp BP Pulse Ox 99.2 F 87 18 139/88 99 11/01/18 20:15 11/01/18 20:15 11/01/18 20:15 11/01/18 20:15 11/01/18 20:15 - Physical Exam Comments: 11/01/18 20:39 General: Well-nourished well-developed individual, no acute distress HEENT: Throat: Normal, tonsils normal, no erythema or exudate Neck: Supple, no meningeal signs, no lymphadenopathy Eyes::Pupils equal reactive and round, extraocular motion intact Chest: Nontender to palpation Cardiac: S1-S2 normal, regular rate and rhythm, no murmurs rubs or gallops Respiratory: Lungs clear to auscultation bilateral Abdomen: Soft, nondistended, normal bowel sounds, nontender to palpation diffusely Extremities: Warm, dry, no cyanosis, clubbing, or edema Skin: No rashes Neuro: Alert and oriented x3, nonfocal exam, grossly intact, normal gait Psych: Normal mood and affect *DC/Admit/Observation/Transfer Diagnosis at time of Disposition: Essential hypertension - Discharge Dispostion Disposition: HOME Condition at time of disposition: Good Decision to Admit order: No - Referrals Referrals: Yung Sampson [Primary Care Provider] - - Patient Instructions Printed Discharge Instructions: DI for High Blood Pressure Additional Instructions: Call your doctor and get an appointment to follow-up once her doctor's back in town in November. Return to the emergency department immediately with ANY new, persistent or worsening symptoms. Continue any medications as previously prescribed by your physician. You should follow up with your primary doctor as soon as possible regarding today's emergency department visit. . Please make sure your doctor reviews the results of your emergency evaluation. Thank you for coming to the Emergency Department today for your care. It was a pleasure to see you today. Please note that your evaluation is INCOMPLETE until you follow-up with your doctor. - Post Discharge Activity
--- NOTE | 2018-11-03 00:12 | EKG ---
Test Reason : Blood Pressure : / mmHG Vent. Rate : 081 BPM Atrial Rate : 081 BPM P-R Int : 158 ms QRS Dur : 092 ms QT Int : 392 ms P-R-T Axes : 053 057 031 degrees QTc Int : 455 ms NORMAL SINUS RHYTHM WITH SINUS ARRHYTHMIA T WAVE ABNORMALITY, CONSIDER ANTERIOR ISCHEMIA ABNORMAL ECG WHEN COMPARED WITH ECG OF 05-JUN-2018 21:50, NO SIGNIFICANT CHANGE WAS FOUND Confirmed by MD Daniel, Danny ([id number]) on 11/03/2018 12:11:44 AM Referred By: KADEEM HWANG Confirmed By:Danny Sanchez MD
== END 2018-11-01 20:52 | disposition home or self-care (01) ==
LOC: FER 20:12
DX: I10 Essential (primary) hypertension (principal); Z87.891 Personal history of nicotine dependence; J45.909 Unspecified asthma, uncomplicated; E07.9 Disorder of thyroid, unspecified
CPT/HCPCS: 93005; 99281-25